=== PATIENT | female | born 1970 | race American Indian/Alaskan Native ===

== ENCOUNTER 2021-08-19 16:08 | Emergency (ER) | payer MEDICAID ==
--- NOTE | 2021-08-19 16:42 | Emergency Department Report ---
ED Back Pain/Injury HPI - General Chief Complaint: Extremity Problem,Nontraumatic Stated Complaint: RIGHT KNEE PAIN Time Seen by Provider: 08/19/21 16:38 Source: patient, EMS Limitations: No Limitations - History of Present Illness Initial Comments: 50-year-old black female with no past medical history presents to the emergency department for evaluation of worsening right lower back pain, neck pain, and right knee pain for the past several months. She states that pain has become much worse. She denies any new injuries, fever, abdominal pain, and dysuria. MD Complaint: back pain -: Gradual, week(s) (1) Similar Symptoms Previously: Yes Place: home, work Radiation: none Severity: severe Severity scale (0 -10): 10 Quality: sharp, aching Consistency: constant Worsens With: movement, walking Associated Symptoms: denies: weakness, chest pain, numbness, difficulty walking, cough, difficulty urinating, diaphoresis, incontinence, fever/chills, constipation, headaches, abdominal pain, loss of appetite, malaise, nausea/vomiting, rash, seizure, shortness of breath, syncope Treatments Prior to Arrival: other medications, prescription analgesics - Related Data Previous Rx's Medication Instructions Recorded Last Taken Type Naproxen [Naprosyn] 500 mg PO BID #14 tab 08/19/21 Unknown Rx Allergies Allergy/AdvReac Type Severity Reaction Status Date / Time Penicillins Allergy Unknown Verified 08/19/21 17:06 ED Review of Systems ROS: Stated complaint: RIGHT KNEE PAIN Other details as noted in HPI Comment: All other systems reviewed and negative Constitutional: denies: chills, diaphoresis, fever Eyes: denies: eye pain ENT: denies: ear pain Respiratory: denies: cough, shortness of breath, SOB with exertion, SOB at rest Cardiovascular: denies: chest pain, dyspnea on exertion Endocrine: no symptoms reported Gastrointestinal: denies: abdominal pain, nausea, vomiting, diarrhea Genitourinary: denies: urgency, dysuria, frequency, hematuria, discharge Musculoskeletal: back pain Skin: denies: rash, lesions Neurological: denies: headache, weakness, numbness, paresthesias, abnormal gait Psychiatric: denies: anxiety Hematological/Lymphatic: denies: easy bleeding, easy bruising ED Past Medical Hx - Medications Home Medications: Home Medications Medication Instructions Recorded Confirmed Last Taken Type Naproxen [Naprosyn] 500 mg PO BID #14 tab 08/19/21 Unknown Rx ED Physical Exam - General Limitations: No Limitations General appearance: alert, in no apparent distress - Head Head exam: Present: atraumatic, normocephalic - Eye Eye exam: Present: normal appearance. Absent: conjunctival injection - Neck Neck exam: Present: normal inspection, tenderness - Respiratory Respiratory exam: Absent: respiratory distress - Cardiovascular Cardiovascular Exam: Present: regular rate - GI/Abdominal GI/Abdominal exam: Absent: distended - Extremities Exam Extremities exam: Present: normal inspection - Back Exam Back exam: Present: normal inspection, full ROM, tenderness (bilateral lower). Absent: CVA tenderness (R), CVA tenderness (L) - Neurological Exam Neurological exam: Present: alert, oriented X3 - Psychiatric Psychiatric exam: Present: normal affect, normal mood - Skin Skin exam: Present: warm, dry, intact, normal color ED Course Vital Signs 08/19/21 08/19/21 16:10 17:35 Temperature 98.4 F 98.2 F Pulse Rate 88 65 Respiratory 16 20 Rate Blood Pressure 138/92 129/83 [Left] O2 Sat by Pulse 100 98 Oximetry ED Medical Decision Making - Medical Decision Making 50-year-old black female with no past medical history presents to the emergency department for evaluation of worsening right lower back pain, neck pain, and right knee pain for the past several months. She states that pain has become much worse. She denies any new injuries, fever, abdominal pain, and dysuria. No spinous process tenderness. Exam consistent with musculoskeletal pain, and patient will be treated with anti inflammatories and muscle relaxants. She was advised to take medications as prescribed and follow up with pcp for further evaluation or if worsening symptoms. She verbalized understanding of and agreement plan of care. Critical care attestation.: If time is entered above; I have spent that time in minutes in the direct care of this critically ill patient, excluding procedure time. ED Disposition Clinical Impression: Neck pain Back pain Qualifiers: Back pain location: low back pain Chronicity: chronic Back pain laterality: bilateral Sciatica presence: without sciatica Qualified Code(s): M54.50 - Low back pain, unspecified Right knee pain Qualifiers: Chronicity: chronic Qualified Code(s): M25.561 - Pain in right knee Disposition: 01 HOME / SELF CARE / HOMELESS Is pt being admited?: No Does the pt Need Aspirin: No Condition: Stable Instructions: Musculoskeletal Pain, Chronic Knee Pain, Adult, Chronic Back Pain Additional Instructions: Take medications as prescribed. Follow-up with primary care provider. Prescriptions: Naproxen [Naprosyn] 500 mg PO BID #14 tab Referrals: AMELIA JENNINGS MD [Referring] - 3-5 Days Time of Disposition: 16:42
[2021-08-19 17:39] VITALS: BP 129/83
[2021-08-19] MEDS ORDERED: oxyCODONE /ACETAMINOPHEN 5-325MG TAB PO ONE (18:00)
[2021-08-19] MEDS ORDERED: predniSONE 20 MG TAB PO ONE (18:00)
[2021-08-19] MEDS ORDERED: KETOROLAC 10 MG TAB PO ONE (18:00)
== END 2021-08-19 17:37 | disposition home or self-care (01) ==
LOC: ED 16:08
DX: M54.2 Cervicalgia (principal); M54.50 Low back pain, unspecified; M25.561 Pain in right knee; Z88.0 Allergy status to penicillin
CPT/HCPCS: 99283